=== PATIENT | male | born 1945 | race Caucasian/White ===

== ENCOUNTER 2017-05-31 15:31 | Inpatient (IN) | payer MEDICARE ==
[~2017-05-31] VITALS: Ht 210.8 cm; Wt 85.4 kg
[2017-05-31] VITALS (13 sets, daily range): BP systolic 84–118; BP diastolic 31–63
[~2017-05-31 15:31] MED LIST: AMIO200T33 PO; ASP81EC PO; CLOP75TA41 PO; ESCI20TA PO; ESCI20TA51 PO; FLU01T PO; LISI10TA6 PO; LORA1TAB12 PO; MEMA28CA PO; MORP30TA PO; OMEP20CA74 PO; SIMV-13 PO; TAMS0.4C36 PO
[2017-05-31] MEDS: NOREPINEPHRINE BITARTRATE 250 ML IV SCH ×2 (21:03→23:56)
[2017-05-31] MEDS: SODIUM CHLORIDE 0.9% 1,000 ML IV SCH (21:15)
[2017-05-31] MEDS ORDERED: VANCOMYCIN PER PHARMACY 0 MG IV SCH (21:15)
[2017-05-31] MEDS ORDERED: NOREPINEPHRINE BITARTRATE 250 ML IV ONE (21:21)
[2017-05-31] MEDS ORDERED: POTASSIUM CHL 20MEQ/100ML 100 ML IV ONE (21:21)
[2017-05-31] MEDS: AMIODARONE HCL 900 MG in DEXTROSE 500 ML IV SCH (21:45)
[2017-05-31] MEDS ORDERED: cefTRIAXone 1GM/50ML D5W 50 ML IV ONE (21:45)
[2017-05-31 21:55] LABS: Basophils # (auto) 0 uL; Basophils % (auto) 0.1 % (0.0-2.0); Eosinophils # (auto) 0.6 uL; Eosinophils % (auto) 3.5 % (0.0-7.0); Hematocrit 27.6 % (41.0-53.0); Hemoglobin 8.7 g/dL (13.5-17.5); Lymphocytes # (auto) 0.7 uL; Lymphocytes % (auto) 4.1 % (10.0-50.0); Mean Corpuscular Hemoglobin 27.4 pg (28.0-32.0); Mean Corpuscular Hgb Conc. 31.7 g/dL (32.0-36.0); Mean Corpuscular Volume 86.4 fL (80.0-100.0); Mean Platelet Volume 9.3 fL (7.4-10.4); Monocytes # (auto) 0.6 uL; Monocytes % (auto) 3.5 % (0.0-12.0); Neutrophils # (auto) 14.9 uL; Neutrophils % (auto) 88.8 % (37.0-80.0); Platelet Count (auto) 251 10^3/uL (140-450); Red Cell Distribution Width 17.2 % (11.6-16.0); White Blood Cell 16.8 10^3/uL (4.4-10.8)
[2017-05-31 22:02] LABS: BUN/Creatinine Ratio 29.9; Calcium 8.4 mg/dL (8.5-10.1); Magnesium 2.7 mg/dL (1.6-2.6); Potassium 3.5 mmol/L (3.5-5.1)
[2017-05-31 22:17] LABS: INR 1.05 (0.9-1.15); Prothrombin Time 11.4 sec (9.37-12.3)
[2017-05-31] MEDS ORDERED: VANCOMYCIN 1,500 MG in D5W 5% 250 ML IV SCH (23:00)
[2017-05-31] MEDS: POTASSIUM CHL 20MEQ/100ML 100 ML IV SCH (23:15)
[2017-06-01] VITALS (69 sets, daily range): BP systolic 94–122; BP diastolic 29–78
[2017-06-01] MEDS: POTASSIUM CHL 20MEQ/100ML 100 ML IV SCH (00:21)
[2017-06-01 03:47] LABS: Basophils # (auto) 0.1 uL; Basophils % (auto) 0.3 % (0.0-2.0); Eosinophils # (auto) 0.6 uL; Hematocrit 28.3 % (41.0-53.0); Hemoglobin 8.9 g/dL (13.5-17.5); Lymphocytes # (auto) 1.5 uL; Lymphocytes % (auto) 8.3 % (10.0-50.0); Mean Corpuscular Hemoglobin 27.1 pg (28.0-32.0); Mean Corpuscular Hgb Conc. 31.4 g/dL (32.0-36.0); Mean Corpuscular Volume 86.3 fL (80.0-100.0); Mean Platelet Volume 9.4 fL (7.4-10.4); Monocytes # (auto) 1.2 uL; Monocytes % (auto) 6.5 % (0.0-12.0); Neutrophils # (auto) 15.2 uL; Neutrophils % (auto) 81.9 % (37.0-80.0); Platelet Count (auto) 248 10^3/uL (140-450); Red Cell Distribution Width 17.1 % (11.6-16.0); White Blood Cell 18.5 10^3/uL (4.4-10.8)
[2017-06-01 04:00] LABS: Albumin 1.7 g/dL (3.4-5.0); Calcium 8.6 mg/dL (8.5-10.1); Potassium 3.8 mmol/L (3.5-5.1)
[2017-06-01 04:02] LABS: BUN/Creatinine Ratio 31.3
[2017-06-01 04:05] LABS: Bilirubin, Total 1.3 mg/dL (0.2-1.0); Total Protein 5.5 g/dL (6.4-8.2)
[2017-06-01] MEDS: cefTRIAXone 1GM/50ML D5W 50 ML IV SCH (08:34)
[2017-06-01] MEDS ORDERED: LIDOCAINE W/ EPINEPHRINE 1 % INJ 30ML ONE (13:08)
[2017-06-01] MEDS ORDERED: LIDOCAINE 1% HCL (LOCAL ANESTH.) INJ 20ML MDV ONE (13:08)
[2017-06-01] MEDS ORDERED: HEPARIN 1,000 UNITS/ml 1ML VIAL ONE (13:08)
[2017-06-01] MEDS ORDERED: ceFAZolin 1GM VL ONE (13:08)
[2017-06-01] MEDS ORDERED: BUPIVACAINE W/ EPINEPH 0.25% INJ 50ML MDV ONE (13:09)
[2017-06-01] MEDS ORDERED: HEPARIN SODIUM (PORCINE) 5000 UNITS/ML 1ML VIAL ONE (13:09)
[2017-06-01] MEDS ORDERED: BUPIVACAINE 0.25% INJ 50ML VIAL ONE (13:09)
[2017-06-01] MEDS ORDERED: APIX5TAB OR (13:36)
[2017-06-01] MEDS ORDERED: ASCO500T11 PO (13:38)
[2017-06-01] MEDS ORDERED: CHOL200010 PO (13:41)
[2017-06-01] MEDS ORDERED: MULTCAP45 PO (13:41)
[2017-06-01] MEDS ORDERED: fentaNYL CITRATE 100 MCG/2 ML VL ONE (13:59)
[2017-06-01] MEDS ORDERED: MIDAZOLAM HCL 1MG/1ML-2 ML VIAL ONE (13:59)
[2017-06-01] MEDS ORDERED: DEXAMETHASONE SOD PHOS 10MG/1ML VIAL INJ IV ONE (14:01)
[2017-06-01] MEDS ORDERED: ONDANSETRON HCL 4 MG/2 ML VIAL IV ONE (15:30)
[2017-06-01] MEDS ORDERED: MIDAZOLAM HCL 1MG/1ML-2 ML VIAL IV PRN (15:30)
[2017-06-01] MEDS ORDERED: LABETALOL HCL 5 MG/ML 4ML SYRINGE IV PRN (15:30)
[2017-06-01] MEDS ORDERED: ePHEDrine SULFATE 50 MG/ML AMP IV PRN (15:30)
[2017-06-01] MEDS ORDERED: KETOROLAC TROMETH 30 MG/ML 1ML VIAL IV ONE (15:30)
[2017-06-01] MEDS ORDERED: fentaNYL CITRATE 100 MCG/2 ML VL IV ONE (16:00)
[2017-06-01] MEDS: VANCOMYCIN 1GM/250ML D5W 250 ML IV SCH (18:17)
[2017-06-01] MEDS: SODIUM CHLORIDE 0.9% 1,000 ML IV SCH (19:00)
[2017-06-01] MEDS: AMIODARONE HCL 900 MG in DEXTROSE 500 ML IV SCH (21:45)
[2017-06-02] VITALS (29 sets, daily range): BP systolic 97–154; BP diastolic 45–73
[2017-06-02] MEDS: VANCOMYCIN 1GM/250ML D5W 250 ML IV SCH ×2 (08:00→21:38)
[2017-06-02] MEDS: cefTRIAXone 1GM/50ML D5W 50 ML IV SCH (09:00)
[2017-06-02] MEDS: SODIUM CHLORIDE 0.9% 1,000 ML IV SCH (18:46)
[2017-06-02 19:02] LABS: BUN/Creatinine Ratio 34.4; Calcium 9.4 mg/dL (8.5-10.1); Potassium 3.8 mmol/L (3.5-5.1)
[2017-06-02 19:09] LABS: Basophils # (auto) 0 uL; Basophils % (auto) 0.2 % (0.0-2.0); Eosinophils # (auto) 0.1 uL; Eosinophils % (auto) 0.3 % (0.0-7.0); Hematocrit 30.2 % (41.0-53.0); Hemoglobin 9.8 g/dL (13.5-17.5); Lymphocytes # (auto) 1.4 uL; Lymphocytes % (auto) 8.5 % (10.0-50.0); Mean Corpuscular Hemoglobin 27.6 pg (28.0-32.0); Mean Corpuscular Hgb Conc. 32.5 g/dL (32.0-36.0); Mean Corpuscular Volume 84.9 fL (80.0-100.0); Mean Platelet Volume 10.2 fL (6.9-10.8); Monocytes # (auto) 0.6 uL; Monocytes % (auto) 3.7 % (0.0-12.0); Neutrophils # (auto) 14.8 uL; Neutrophils % (auto) 87.3 % (37.0-80.0); Nucleated Red Blood Cells % 0.5 %; Platelet Count (auto) 276 10^3/uL (140-450); Red Cell Distribution Width 17.2 % (11.8-14.3)
[2017-06-02] MEDS ORDERED: NOREPINEPHRINE BITARTRATE 250 ML IV SCH (21:03)
[2017-06-02] MEDS: AMIODARONE HCL 900 MG in DEXTROSE 500 ML IV SCH (21:45)
[2017-06-03 05:33] VITALS: BP 145/80
[2017-06-03 08:00] VITALS: BP 136/68
[2017-06-03] MEDS: cefTRIAXone 1GM/50ML D5W 50 ML IV SCH (08:55)
[2017-06-03 12:00] VITALS: BP 150/84
[2017-06-03] MEDS: LINEZOLID 600MG/300ML 300 ML IV SCH (13:43)
[2017-06-03 17:00] VITALS: BP 165/78
[2017-06-03 20:00] VITALS: BP 145/83
[2017-06-03 22:00] VITALS: BP 145/83
[2017-06-04] MEDS: LINEZOLID 600MG/300ML 300 ML IV SCH ×2 (01:27→14:22)
[2017-06-04 06:03] VITALS: BP 146/75
[2017-06-04 08:00] VITALS: BP 146/66
[2017-06-04 08:56] VITALS: BP 146/66
[2017-06-04] MEDS: PRO-STAT 64 30ML PO SCH ×3 (12:40→21:18)
[2017-06-04 13:00] VITALS: BP 149/78
[2017-06-04] MEDS: BOOST PLUS 8 ounce PO SCH ×3 (14:23→21:17)
[2017-06-04] MEDS ORDERED: FAMOTIDINE 20 MG TAB PO ONE ×3 (16:00)
[2017-06-04 17:00] VITALS: BP 153/77
[2017-06-04] MEDS: cefTRIAXone 1GM/50ML D5W 50 ML IV SCH (21:17)
[2017-06-04] MEDS: FAMOTIDINE 20 MG TAB PO SCH (21:17)
[2017-06-04 22:00] VITALS: BP 150/81
[2017-06-05] MEDS: LINEZOLID 600MG/300ML 300 ML IV SCH ×2 (01:45→13:18)
[2017-06-05 05:02] VITALS: BP 158/76
[2017-06-05] MEDS: BOOST PLUS 8 ounce PO SCH ×6 (06:08→22:03)
[2017-06-05 06:30] LABS: Basophils # (auto) 0 uL; Basophils % (auto) 0.1 % (0.0-2.0); CONDITION Y; Eosinophils # (auto) 0.1 uL; Eosinophils % (auto) 0.9 % (0.0-7.0); Hematocrit 29.4 % (41.0-53.0); Hemoglobin 9.8 g/dL (13.5-17.5); Lymphocytes % (auto) 22.1 % (10.0-50.0); Mean Corpuscular Hemoglobin 27.6 pg (28.0-32.0); Mean Corpuscular Hgb Conc. 33.3 g/dL (32.0-36.0); Mean Platelet Volume 10.6 fL (6.9-10.8); Monocytes # (auto) 0.9 uL; Monocytes % (auto) 6.8 % (0.0-12.0); Neutrophils # (auto) 9.5 uL; Neutrophils % (auto) 70.1 % (37.0-80.0); Platelet Count (auto) 281 10^3/uL (140-450); Red Cell Distribution Width 16.4 % (11.8-14.3); White Blood Cell 13.6 10^3/uL (4.4-10.8)
[2017-06-05 06:39] LABS: Albumin 1.8 g/dL (3.4-5.0); BUN/Creatinine Ratio 14.4; Calcium 8.5 mg/dL (8.5-10.1); Potassium 3.4 mmol/L (3.5-5.1)
[2017-06-05 06:42] LABS: Bilirubin, Total 1.2 mg/dL (0.2-1.0); Total Protein 5.2 g/dL (6.4-8.2)
[2017-06-05 08:00] VITALS: BP 149/77
[2017-06-05 08:19] VITALS: BP 149/77
[2017-06-05] MEDS: FAMOTIDINE 20 MG TAB PO SCH ×2 (10:00→22:03)
[2017-06-05] MEDS: cefTRIAXone 1GM/50ML D5W 50 ML IV SCH ×2 (10:00→22:03)
[2017-06-05] MEDS: PRO-STAT 64 30ML PO SCH ×4 (10:10→22:03)
[2017-06-05 12:30] VITALS: BP 140/78
[2017-06-05 16:05] VITALS: BP 155/83
[2017-06-05 22:07] VITALS: BP 137/63
[2017-06-06] MEDS: LINEZOLID 600MG/300ML 300 ML IV SCH (01:36)
[2017-06-06 05:30] VITALS: BP 165/88
[2017-06-06] MEDS: BOOST PLUS 8 ounce PO SCH ×6 (05:52→22:00)
[2017-06-06] MEDS: cefTRIAXone 1GM/50ML D5W 50 ML IV SCH ×2 (08:22→21:12)
[2017-06-06] MEDS: PRO-STAT 64 30ML PO SCH ×4 (08:23→22:00)
[2017-06-06] MEDS: FAMOTIDINE 20 MG TAB PO SCH ×2 (08:23→22:43)
[2017-06-06 09:00] VITALS: BP 140/73
[2017-06-06] MEDS ORDERED: SODIUM CHLORIDE 0.9% 500 ML IV ONE (12:15)
[2017-06-06 12:49] VITALS: BP 154/90
[2017-06-06 17:00] VITALS: BP 156/81
[2017-06-06 20:00] VITALS: BP 149/78
[2017-06-06 22:23] VITALS: BP 149/78
[2017-06-07 05:06] VITALS: BP 153/76
[2017-06-07 08:19] VITALS: BP 151/80
[2017-06-07 09:00] VITALS: BP 151/80
[2017-06-07] MEDS: cefTRIAXone 1GM/50ML D5W 50 ML IV SCH (09:06)
[2017-06-07] MEDS: PRO-STAT 64 30ML PO SCH ×2 (09:06)
[2017-06-07] MEDS: FAMOTIDINE 20 MG TAB PO SCH (09:06)
[2017-06-07 13:00] VITALS: BP 152/79
[2017-06-07] MEDS ORDERED: EPOETIN ALFA 10,000 UNIT/1 ML VIAL SC ONE (13:45)
[2017-06-07] MEDS ORDERED: IOHEXOL 300 MG/ML 100ML BOTTLE IJ ONE (14:04)
[2017-06-07 16:01] VITALS: BP 152/79
== END 2017-06-07 17:00 | disposition home health service (06) | DRG 871 ==
LOC: ICU CENTRL 19:30 → DOU IN ICU 19:34 → ICU WEST 22:20 → TELE-WESTW 06-02 21:17
PROVIDERS: ADMIT Internal Medicine Cardiovascular Disease; ATTEND Internal Medicine Cardiovascular Disease
PROC: 05H433Z Insertion of Infusion Device into Left Innominate Vein, Percutaneous Approach (ICD-10-PCS; 2017-06-01)
PROC: 0JH60XZ Insertion of Tunneled Vascular Access Device into Chest Subcutaneous Tissue and Fascia, Open Approach (ICD-10-PCS; principal; 2017-06-01 14:09)
DX: A41.89 Other specified sepsis (principal); J96.90 Respiratory failure, unspecified, unspecified whether with hypoxia or hypercapnia; G93.41 Metabolic encephalopathy; C22.1 Intrahepatic bile duct carcinoma; D68.59 Other primary thrombophilia; B95.2 Enterococcus as the cause of diseases classified elsewhere; I48.91 Unspecified atrial fibrillation; Y92.89 Other specified places as the place of occurrence of the external cause; J44.9 Chronic obstructive pulmonary disease, unspecified; T40.691A Poisoning by other narcotics, accidental (unintentional), initial encounter; G89.4 Chronic pain syndrome; I70.0 Atherosclerosis of aorta; I10 Essential (primary) hypertension; M19.90 Unspecified osteoarthritis, unspecified site; Z87.891 Personal history of nicotine dependence; Z16.21 Resistance to vancomycin
CPT/HCPCS: 36415; 70470; 71010; 80048; 80053; 80202; 82962; 83605; 83735; 85025; 85610; 85730; 86850; 86900; 86901; 87040; 87077; 87081; 87086; 87186; C1788; J0690; J0696; J0885; J1100; J2001; J2250; J3480; J3490; J7060

== ENCOUNTER → 2017-06-17 | Outpatient (CLI) | payer MEDICARE ==
[~2017-06-17] MED LIST changes: +APIX5TAB OR; +ASCO500T11 PO; -ASP81EC PO; +CHLO25TA22 PO; +CHOL200010 PO; -CLOP75TA41 PO; -FLU01T PO; -LISI10TA6 PO; +MORP15TA PO; +MULTCAP45 PO; -SIMV-13 PO
[2017-06-17 15:59] LABS: Urine Bilirubin Negative (Negative); Urine Blood Negative /uL (Negative); Urine Color Yellow (Yellow); Urine Glucose Normal (Normal); Urine Ketone Negative (Negative); Urine Nitrite Negative (Negative); Urine Urobilinogen Normal (Negative)
== END | disposition home or self-care (01) ==
LOC: Rad HDHVI 11:41
PROVIDERS: ATTEND Internal Medicine Cardiovascular Disease
DX: N39.0 Urinary tract infection, site not specified (principal)
CPT/HCPCS: 81003; 87086